=== PATIENT | male | born 1945 | race Caucasian/White ===

== ENCOUNTER 2016-03-17 10:53 | Inpatient (IN) | payer MEDICARE ==
[2016-03-17] MEDS ORDERED: NS 0.9% 1000 ML* 1,000 ML IV SCH (11:15)
--- NOTE | 2016-03-17 11:50 | RAD ---
INDICATION: Ventricular tachycardia episode. COMPARISON: Comparison is made with a prior chest x-ray study from March 14, 2016. TECHNIQUE: A portable view of the chest was obtained. FINDINGS: Cardiac and mediastinal contours appear to be within normal limits. The lungs are clear. No pleural effusion is seen. IMPRESSION: NO EVIDENCE FOR ACUTE DISEASE.
[2016-03-17 11:53] LABS: Hematocrit 44 % (42-52); Hemoglobin 14.6 g/dl (14.0-18.0); Mean Corpuscular HGB Conc 34 g/dl (31-36); Mean Corpuscular Hemoglobin 31 pg (27-31); Mean Corpuscular Volume 91 fL (80-94); Mean Platelet Volume 8 um3 (7.4-10.4); Red Blood Count 4.76 10^6/ul (4.0-5.4); Red Cell Distribution Width 13 % (10.5-15); White Blood Count 4.2 10^3/ul (3.5-10.8)
[2016-03-17] MEDS ORDERED: Acetaminophen TAB* 325 MG PO PRN (12:06)
[2016-03-17] MEDS ORDERED: Ondansetron INJ* 2 MG/ML VIAL IV PRN ×2 (12:06→17:43)
[2016-03-17] MEDS ORDERED: Atorvastatin* 80 MG TAB PO ONE (12:07)
[2016-03-17] MEDS ORDERED: Metoprolol Tartrate TAB* 25 MG PO SCH (12:07)
[2016-03-17 12:13] LABS: Albumin 3.7 g/dL (3.2-5.2); BUN/Creatinine Ratio 11.8 (8-20); C Reactive Protein 5.62 mg/L (< 5.00); EGFR African American 113.6 (>60); EGFR Non-African American 88.4 (>60); Globulin 2.8 g/dL (2-4); Magnesium 2.2 mg/dL (1.9-2.7); Potassium 3.5 mmol/L (3.5-5.0); Total Bilirubin 0.9 mg/dL (0.2-1.0); Total Protein 6.5 g/dL (6.4-8.9)
--- NOTE | 2016-03-17 12:13 | ED ---
Steven Porras Matthew, scribed for Cameron Mae MD on 03/17/16 at 1120 . Palpitations / Dysrhythmia - HPI Summary HPI Summary: A 71 y/o male presents to the ED from Dr. Metz office for ventricular tachycardia since hours ago. The patient has approximately 20 beats of V Tachy and was asymptomatic. He was having a stress test, because of chest pressure he had 4 days ago. He currently denies any pain. He works out regularly (3-4x per week) at [employer], which includes [employer] and yoga. He states that the polictial situation has been an additional stress in his life. In 1998, the patient has three stents placed after competing a stress test. Since then he has been very active and has not had additional medical problems. - History of Current Complaint Chief Complaint: EDDysrhythmPalp Time Seen by Provider: 03/17/16 11:02 Hx Obtained From: Patient Onset/Duration: Sudden Onset, Lasting Minutes, Resolved Timing: Intermittent Episodes Lasting: - ~20 beats of V Tach Severity Initially: Mild Severity Currently: Mild Character: Irregular Aggravating: Exertion - Stress Test Alleviating: Rest Associated Signs & Symptoms: Negative - Allergy/Home Medications Allergies/Adverse Reactions: Allergies Allergy/AdvReac Type Severity Reaction Status Date / Time Reproterol Allergy Unknown Unknown Verified 03/17/16 11:03 Reaction Details Morphine Allergy Tachycardia Verified 03/17/16 11:03 Home Medications: Home Medications Atorvastatin* [Lipitor*] 40 mg PO DAILY 03/17/16 [History Confirmed 03/17/16] Diltiazem HCl Coated Beads [Cartia Xt] 240 mg PO DAILY 03/17/16 [History Confirmed 03/17/16] Irbesartan (NF) [Avapro (NF)] 150 mg PO BID 03/17/16 [History Confirmed 03/17/16 ] PMH/Surg Hx/FS Hx/Imm Hx Endocrine/Hematology History: Denies: Hx Diabetes, Hx Thyroid Disease Cardiovascular History: Reports: Hx Hypercholesterolemia, Hx Hypertension - on meds Denies: Hx Peripheral Vascular Disease Musculoskeletal History: Denies: Hx Arthritis, Hx Rheumatoid Arthritis, Hx Osteoporosis Sensory History: Denies: Hx Cataracts, Hx Contacts or Glasses, Hx Glaucoma Opthamlomology History: Denies: Hx Cataracts, Hx Contacts or Glasses, Hx Glaucoma Neurological History: Denies: Hx Headaches, Hx Seizures, Hx Transient Ischemic Attacks (TIA) Psychiatric History: Denies: Hx Anxiety, Hx Depression - Surgical History Surgery Procedure, Year, and Place: 1998 Infectious Disease History: No Infectious Disease History: Denies: Traveled Outside the [place] in Last 30 Days - Family History Known Family History: Negative: Cardiac Disease, Hypertension, Diabetes Family History: No FHx of HLD, arhtritist, RA, Osteoporosis; FHx of CA - Social History Lives: With Family Hx Substance Use: No Substance Use Type: Reports: None Hx Tobacco Use: No Smoking Status (MU): Never Smoked Tobacco Review of Systems Constitutional: Negative Eyes: Negative ENT: Negative Cardiovascular: Negative Respiratory: Negative Gastrointestinal: Negative Genitourinary: Negative Musculoskeletal: Negative Skin: Negative Neurological: Negative Psychological: Normal All Other Systems Reviewed And Are Negative: Yes Physical Exam Triage Information Reviewed: Yes Vital Signs On Initial Exam: Initial Vitals Temp Pulse Resp BP Pulse Ox 99.4 F 88 16 146/99 98 03/17/16 10:56 03/17/16 10:56 03/17/16 10:56 03/17/16 10:56 03/17/16 10:56 Vital Signs Reviewed: Yes Appearance: Positive: Well-Appearing, No Pain Distress Skin: Positive: Warm, Skin Color Reflects Adequate Perfusion, Dry Head/Face: Positive: Normal Head/Face Inspection ENT: Positive: Normal ENT inspection Neck: Positive: Supple, Nontender Respiratory/Lung Sounds: Positive: Clear to Auscultation, Breath Sounds Present Cardiovascular: Positive: RRR Abdomen Description: Positive: Nontender, Soft Musculoskeletal: Positive: Normal, Strength/ROM Intact Neurological: Positive: Normal, Sensory/Motor Intact, Alert, Oriented to Person Place, Time Psychiatric: Positive: Normal, Affect/Mood Appropriate Diagnostics - Vital Signs Vital Signs Temp Pulse Resp BP Pulse Ox 03/17/16 10:56 99.4 F 88 16 146/99 98 - Laboratory Lab Results: Lab Results 03/17/16 03/17/16 Range/Units 11:35 11:35 WBC 4.2 (3.5-10.8) 10^3/ul RBC 4.76 (4.0-5.4) 10^6/ul Hgb 14.6 (14.0-18.0) g/dl Hct 44 (42-52) % MCV 91 (80-94) fL MCH 31 (27-31) pg MCHC 34 (31-36) g/dl RDW 13 (10.5-15) % Plt Count 216 (150-450) 10^3/ul MPV 8 (7.4-10.4) um3 Neut % (Auto) 62.9 (38-83) % Lymph % (Auto) 16.7 L (25-47) % [place] % (Auto) 17.1 H (1-9) % Eos % (Auto) 2.7 (0-6) % Baso % (Auto) 0.6 (0-2) % Absolute Neuts (auto) 2.6 (1.5-7.7) 10^3/ul Absolute Lymphs (auto) 0.7 L (1.0-4.8) 10^3/ul Absolute Monos (auto) 0.7 (0-0.8) 10^3/ul Absolute Eos (auto) 0.1 (0-0.6) 10^3/ul Absolute Basos (auto) 0 (0-0.2) 10^3/ul Absolute Nucleated RBC 0.01 10^3/ul Nucleated RBC % 0.3 INR (Anticoag Therapy) 1.02 (0.89-1.11) APTT 31.9 (26.0-36.3) seconds Result Diagrams: 03/17/16 11:35 Lab Statement: Any lab studies that have been ordered have been reviewed, and results considered in the medical decision making process. - Radiology CXR Xray Interpretation: No Acute Changes - The lungs are clear. No pleural effusion is seen. IMPRESSION: NO EVIDENCE FOR ACUTE DISEASE. Radiology Interpretation Completed By: Radiologist - EKG 10:51 Cardiac Rate: NL - 89 bpm EKG Rhythm: Sinus Rhythm ST Segment: Normal Ectopy: None Course/Dx - Course Assessment/Plan: DISCUSSED WITH DR SOUZA. ADMIT HOSPITALIST STABLE. - Diagnoses Provider Diagnoses: Ventricular tachycardia - Physician Notifications Discussed Care Of Patient With: Dr. Law (Hospitalist) at 11:15 -- Notified of patient's history and will admit the patient. Discharge - Discharge Plan Condition: Stable Disposition: ADMITTED TO [facility] Referrals: Robbin Ervin MD [Primary Care Provider] - The documentation as recorded by the Steven keane Matthew accurately reflects the service I personally performed and the decisions made by me, Cameron Mae MD.
[2016-03-17 12:22] LABS: TSH (Thyroid Stimulating Horm) 1.85 mcIU/mL (0.34-5.60)
[2016-03-17] MEDS ORDERED: Potassium Chlor TAB* 20 MEQ TAB.ER PO ONE (12:25)
[2016-03-17] MEDS ORDERED: Ticagrelor* 90 MG TAB PO ONE ×2 (12:30→12:32)
[2016-03-17 12:31] LABS: Urine Bilirubin Negative (Negative); Urine Glucose Negative (Negative); Urine Nitrite Negative (Negative)
[2016-03-17] MEDS ORDERED: Diazepam TAB(*) 5 MG PO ONE (12:57)
[2016-03-17] MEDS ORDERED: diPHENhydraMINE PO* 25 MG PO ONE (12:57)
--- NOTE | 2016-03-17 13:00 | CONSULT ---
Subjective Date of Service: 03/17/16 Interval History: Date of admission and consult 03/17/2016 Owner/Photographer: Dr. Woods Service: Hospitalist CC: Chest discomfort Reason for consult: Abnormal stress test/WCT HPI: Mr. Monzon is a 71 year old man with intermittent chest heaviness at rest last 2 weeks that resolves with exercise. Fleeting seconds of neck discomfort. Mild cough and chest feels congestion. No palpitations or syncope. Did AM treadmill study without usual cardizem and had WCT consider VT post-exercise without symptoms. He is asymptomatic at this time and denies any chest pain, jaw pain or chest congestion. The first troponin is undetectable and 12 lead EKG is normal. Allergies: Omnipaque 06/25/05 Altace 01/06/06 - cough Morphine 04/04/09 - hypotension and bradycardia allergy list reviewed on 03/14/2016 FH: Breast Cancer - mother Prostate Cancer - father. 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. present at bedside Personal Habits: Smoking: Patient has never smoked.. Alcohol: Rarely consumes alcohol. Exercises regularly - 4-5 days/week - aerobic, ligting weight, stretchings. Medications Active Medications: Acetaminophen (Tylenol Tab*) 650 mg PO Q4H PRN PRN Reason: FEVER/PAIN Aspirin (Aspirin Low Dose Tab*) 81 mg PO DAILY [facility] Atorvastatin Calcium (Lipitor*) 80 mg PO 1700 [facility] Heparin Sodium (Porcine) (Heparin Vial(*)) 5,000 units SUBCUT Q8HR [facility] Sodium Chloride (Ns 0.9% 1000 Ml*) 1,000 mls @ 150 mls/hr IV PER RATE [facility] Losartan Potassium (Cozaar Tab*) 50 mg PO BID [facility] Metoprolol Tartrate (Lopressor Tab*) 25 mg PO Q12HR [facility] Ondansetron HCl (Zofran Inj*) 4 mg IV Q6H PRN PRN Reason: NAUSEA Ticagrelor (Brilinta*) 90 mg PO BID [facility] Home Medications: aspirin Atorvastatin* [Lipitor*] 40 mg PO DAILY 03/17/16 [History Confirmed 03/17/16] Diltiazem HCl Coated Beads [Cartia Xt] 240 mg PO DAILY 03/17/16 [History Confirmed 03/17/16] Irbesartan (NF) [Avapro (NF)] 150 mg PO BID 03/17/16 [History Confirmed 03/17/16 ] Review of Systems - Measurements Intake and Output: Intake and Output Last 24 Hours 03/15/16 03/16/16 03/17/16 03/18/16 06:59 06:59 06:59 06:59 Weight 168 lb - Review of Systems Constitutional Symptoms: Negative: Weight Gain, Weight Loss, Weakness, Fatigue, Fever, Night Sweats, Unexplained Falls Dermatology: Negative: Rash, Skin Lesions, Cancer, Skin Lumps HEENT: Negative: Change in Hearing, Vertigo, Tinnitus, Sinus Problem Eyes: Negative: Change in Vision, Double Vision, Eye Pain Thyroid: Negative: Goiter, Thyroid Nodule, Cold Intolerance, Heat Intolerance, Sweatiness, Tremor, Frequent Defecation, Constipation, Palpitations, Primary Hypothyroidism, Primary Hyperthyroidism, Weight Loss, Weight Gain Pulmonary: Positive: Cough Negative: Sputum, Hemoptysis, Wheezing, Respiratory Distress, Shortness of Breath, COPD, Exercise Intolerance Cardiology: Positive: Chest Pain Negative: Palpitations, Swelling of Ankles, Peripheral Vascular Dis, Edema, Faintness, Syncope, Claudication, Paroxysmal Nocturnal Dyspnea, Orthopnea Gastroenterology: Negative: Abdominal Pain, Nausea, Vomiting, Anorexia, Indigestion, Difficulty Swallowing, Heartburn, Constipation, Diarrhea, Blood in Stools, Change in Bowel Habits, Haematemesis, Melena Genital - Urinary: Negative: Dysuria, Polyuria, Nocturia Musculoskeletal: Negative: Joint Stiffness, Arthritis, Osteoporosis, Low Back Pain, Sciatica Endocrinology: Negative: Adrenal Problems, Family Hx Endocrine Disorders, Obesity, Diabetes , Hyperglycemia, Hypoglycemia, Calluses, Polydipsia, Polyuria Hematologic/Lymphatic: Positive: Use of Antiplatelet Drugs Negative: Anemia, Easy Brusing, Hx Leukemia, Hx Lymphoma, Use of Anticoagulant Neurology: Negative: Headaches, Migraines, Change in Vision, Diplopia, Dizziness, Change in Balancing, Change in Coordination, Change in Memory, Change in Speech , Change in Sphincter Function, Change in Walking, Numbness\Paresthesiae, Unexplained Weakness Psychiatry: Negative: Depression, Anxiety, Sexual Dysfunction, Weight Change, Guilt Feelings Allergic/Immunologic: Negative: Hx HIV, Immunocompromise Review of Systems Statement: All other review of systems negative, unless stated above. Objective Vital Signs: Temp Pulse Resp BP Pulse Ox 99.4 F 86 19 156/101 97 03/17/16 10:56 03/17/16 11:04 03/17/16 11:04 03/17/16 11:03 03/17/16 11:04 Appearance: nad, pleasant Ears/Nose/Mouth/Throat: Clear Oropharnyx, Mucous Membranes Moist Neck: NL Appearance and Movements; NL JVP, Trachea Midline Respiratory: Symmetrical Chest Expansion and Respiratory Effort, Clear to Auscultation Cardiovascular: NL Sounds; No Murmurs; No JVD, RRR, No Edema Abdominal: NL Sounds; No Tenderness; No Distention Lymphatic: No Cervical Adenopathy Extremities: No Edema Skin: No Rash or Ulcers Neurological: Alert and Oriented x 3, NL Muscle Strength and Tone Laboratory Results: 03/17/16 11:35 03/17/16 11:35 INR (Anticoag Therapy) 1.02 (0.89-1.11) 03/17/16 11:35 APTT 31.9 seconds (26.0-36.3) 03/17/16 11:35 Total Bilirubin 0.90 mg/dL (0.2-1.0) 03/17/16 11:35 AST 17 U/L (13-39) 03/17/16 11:35 ALT 18 U/L (7-52) 03/17/16 11:35 Alkaline Phosphatase 80 U/L (34-104) 03/17/16 11:35 CK-MB (CK-2) 3.0 ng/mL (0.6-6.3) 03/17/16 11:35 B-Natriuretic Peptide 39 pg/mL (-100) 03/17/16 11:35 Total Protein 6.5 g/dL (6.4-8.9) 03/17/16 11:35 Albumin 3.7 g/dL (3.2-5.2) 03/17/16 11:35 Globulin 2.8 g/dL (2-4) 03/17/16 11:35 Albumin/Globulin Ratio 1.3 (1-3) 03/17/16 11:35 TSH 1.85 mcIU/mL (0.34-5.60) 03/17/16 11:35 03/17/16 11:35 Troponin I 0.00 Diagnostic Imagin04/17/1998: (stress test inferior and lateral ischemia). 90% OM1 with occluded Lcx that is collateralized, 95% RPDA lesions s/p PCI to Lcx and RPDA TTE 11/2013 LVEF 60-65% Assessment/Plan Mr. Franklin is a 71 year old man with a history of HTN, dyslipidemia, CAD s/p PCI admitted with atypical chest pain and abnormal stress test with post-exercise WCT likely VT. Asymptomatic at this time without any evidence of ongoing myocardial ischemia. - Cardiac catheterization with intent for revascularization recommended. Risks , benefits and alternatives discussed and patient wishes to proceed. - Continue aspirin at 81 mg PO daily - Given brillinta 180 mg PO x 1 now then 90 mg PO BID - Intensive dose statin - d/c cardizem, start metoprolol Thank you for allowing me to participate in the cardiovascular care of this patient. Please do not hesitate to contact me with questions or concerns.
[2016-03-17] MEDS ORDERED: Midazolam* 1 MG/ML 5 ML VIAL (5 MG) ONE (13:43)
[2016-03-17] MEDS ORDERED: VERAPAMIL 2.5 MG/ML 4 ML VIAL ONE (13:43)
[2016-03-17] MEDS ORDERED: fentaNYL* 50 MCG/ML 2 ML VIAL (100 MCG VIAL) ONE (13:43)
[2016-03-17] MEDS ORDERED: Iohexol 350 (CONTRAST) 200 ML MDV IV ONE (13:44)
[2016-03-17] MEDS ORDERED: nitroGLYCERIN DRIP* 250 ML ONE (13:44)
[2016-03-17] MEDS ORDERED: Heparin 2 UNITS/ML IVPREMIX* 3,000 ML IV ONE (13:44)
[2016-03-17] MEDS ORDERED: Lidocaine 1% INJ* 10 MG/ML 30 ML SDV ONE (13:44)
[2016-03-17] MEDS ORDERED: Heparin(*) 1000 UNIT/ML 10 ML VIAL CATH LAB IV ONE (13:46)
[2016-03-17] MEDS ORDERED: Iodixanol* (CONTRAST) 320 MG/ML 100 ML SDV ONE ×2 (13:46→15:02)
[2016-03-17] MEDS ORDERED: diPHENhydraMINE IV* 50 MG/ML 1 ml VIAL (BENADRYL) ONE (13:48)
[2016-03-17] MEDS ORDERED: methylPREDNISolone 125 MG* 2 ML VIAL ONE (13:48)
[2016-03-17] MEDS ORDERED: Bivalirudin(*) 250 MG VIAL ONE (14:30)
[2016-03-17] MEDS ORDERED: Adenosine* 3 MG/ML VIAL ONE (14:40)
[2016-03-17] MEDS: NS 0.9% 1000 ML* 1,000 ML IV SCH (17:41)
[2016-03-17] MEDS ORDERED: Docusate CAP* 100 MG PO PRN (17:43)
[2016-03-17] MEDS ORDERED: Nitroglycerin TAB 0.4 MG* 0.4 MG TAB SL PRN (17:43)
[2016-03-17] MEDS ORDERED: Zolpidem TAB* 5 MG PO PRN (17:43)
[2016-03-17] MEDS: Heparin VIAL(*) 5000 UNITS/ML VIAL (FIVE THOUSAND) SUBCUT SCH ×2 (18:33→21:13)
--- NOTE | 2016-03-17 19:46 | HP ---
HISTORY AND PHYSICAL: DATE OF ADMISSION: 03/17/16 ATTENDING PHYSICIAN: Dr. Serg Law* (report dictated by Dave Martinez NP) . CHIEF COMPLAINT: Abnormal stress test. HISTORY OF PRESENT ILLNESS: Mr. Franklin is a 71-year-old male patient with a history of coronary artery disease, hypertension, hyperlipidemia and a history of melanoma. In addition to this, there is a questionable history of obstructive sleep apnea, although he does not wear a mask. He presents today stating that last week he was having some chest discomfort at rest just sitting and with non-exertionally. He states he has been working out, doing his elliptical at [facility]. He has no symptoms whatsoever when he does this with the exception he did have one episode where he had some discomfort going up into his jaw and into his neck area. He states last week he also felt off. He states he just felt different, felt weak, felt like he did not have enough oxygen after exercising 1 day. He also had some chest congestion. 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 Woods, who saw him last week and set the patient up for a stress test today. He denies having any episodes of syncope. Denies having any episodes of feeling lightheaded or dizziness. He states he has not had any fever. Denied having any sore throat or cough. Denied having any leg slowing or erythema or leg calf tenderness. He saw Dr. Woods. She felt that it will be appropriate to do a nuclear stress test and underwent the stress today and during the stress test, he had a 20-beat episode of ventricular tachycardia, which was asymptomatic. The only thing he felt was short of breath but he had just been exercising on the treadmill and had his heart rate up to 150. He denied having any episodes of feeling lightheaded, feeling dizziness, feeling like he was going to faint. Denied any having any chest discomfort, arm pain or any discomfort in the neck like he had previously but because of the 20-beat V-tach run, he was sent to the emergency department for further evaluation and most likely cardiac catheterization. PAST MEDICAL HISTORY: Significant for: 1. Coronary artery disease. 2. Hyperlipidemia. 3. Hypertension. 4. Question of KOBY. 5. Melanoma. PAST SURGICAL HISTORY: He has had a cardiac catheterization with stenting to the RCA and to the circumflex done in 1998. Refer to the report for details. HOME MEDICATIONS: According to the list that was provided and according to Cardiology notes include: 1. Avapro 150 mg p.o. b.i.d. 2. Cartia 240 mg p.o. daily. 3. Lipitor 40 mg daily. ALLERGIES: Include OMNIPAQUE and a history of MORPHINE allergy as well. FAMILY HISTORY: Mother had breast cancer, father had prostate cancer. SOCIAL HISTORY: He does not smoke. He rarely drinks alcohol. He exercises 4 to 5 times a week. Surrogate decision maker is his . He has 1 child. 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 REVIEW OF SYSTEMS: There is no documented fever. No significant weight change. No double vision. No ear discharge. No rhinorrhea. No sore throat. No thyroid enlargement. There was chest heaviness from HPI. No dyspnea on exertion. No orthopnea. No exertional dyspnea. There is no abdominal pain. No nausea, no vomiting no dysuria, no frequency, no loss of consciousness. No pruritus. No skin ulceration. Review of 14 systems completed, all others negative. PHYSICAL EXAMINATION GENERAL: Mr. Franklin is a 71-year-old male patient who does not appear to be in any acute distress. He is sitting in the ER stretcher. Appears well nourished and well developed. VITAL SIGNS: Blood pressure 146/99, pulse 88, respirations 16, O2 sat 98%, temperature 99.4. HEENT: Head is atraumatic, normocephalic. Eyes: EOMs intact. Sclerae anicteric, not pale. NECK: Supple. Throat: Oral mucosa appears to be moist. No oropharyngeal erythema. HEART: Sounds S1, S2. Regular rate and rhythm. No murmurs, rubs, or gallops. LUNGS: Clear to auscultation bilaterally. No wheezes, rales or rhonchi. ABDOMEN: Soft, flat, and nontender. Bowel sounds are present. EXTREMITIES: Pulses 2+ throughout. He is able to move all 4 extremities with 5 /5 strength. NEUROLOGIC: He is awake and alert and oriented x3. No gross focal deficits. SKIN: Grossly intact. LABORATORY DATA: Revealed a WBC of 4.2, RBC of 4.76, hemoglobin 14.6, hematocrit of 44, platelet count 216. INR 1.02, PTT 31.9. Sodium was 138, potassium was 3.5, chloride of 105, bicarb 28, BUN 10, creatinine 0.85, glucose 104, calcium 9.0, mag 2.2. His total bili 0.9, AST 17, ALT 18, alk phos 80, CK 72, CK-MB 3.0, troponin 0, CRP of 5.6, BNP of 39, TSH 1.85, lipase 58. He did have an EKG obtained today, which showed normal sinus rhythm at a rate of [address] elevation or T-wave inversions. It was reviewed to the previous EKG, appears to be similar. He had a chest x-ray obtained today and on my review I did not appreciate any acute infiltrates or pulmonary effusions. He had no cardiomegaly. Appeared to be a benign film. Radiology read it as no evidence of acute disease. He did have an old cath report, which did show 2-vessel disease. Refer to the chart for details. Old medical records were reviewed. ASSESSMENT AND PLAN: Mr. Franklin is a 71-year-old male patient coming into ER today with complaint of an abnormal stress test and on evaluation found to have 20-beat run of ventricular tachycardia and he will be admitted under inpatient status for: 1. Chest discomfort. Concern for acute coronary syndrome with episode of ventricular tachycardia. At this point, I do note his potassium is 3.5. I am going to give him 40 mEq of potassium to try to him get close to 4. His magnesium is stable. Obviously, I think the next step for this patient because he was having some discomfort, is to go ahead and do a heart catheterization. Dr. Camara has been consulted. He is in touch with Dr. Benavides to see if they can do a heart catheterization today. I did ask specifically if we should put the patient on Lovenox or heparin, but he is asymptomatic. His troponin is 0. At this point, we will discontinue the beta, aspirin, statin therapy and we also started him on Brilinta. He was loaded today. If his troponins elevate or he starts becoming symptomatic, then obviously we would add on nitrates and heparin or Lovenox. For the time being though, he is n.p.o. for possible cath today or tomorrow and we will place him on telemetry and follow. 2 . Coronary artery disease. Again, he is already maximized on aspirin, Lipitor, beta- mendez and Brilinta. We may consider nitrates and Lovenox depending on clinical course. 3. Hyperlipidemia. We will check a lipid panel in the morning. He will continue statin. 4. Question of obstructive sleep apnea. He can follow up with his primary and this can be reevaluated. 5. Hypertension. We will go ahead and continue meds as prescribed with the exception I am holding his Cartia and I am starting him on a beta-mendez for now and I will continue to follow. 6. Melanoma. Follow with his primary. 7. DVT prophylaxis. I will go ahead and place him on heparin subcu as he is moderate risk. 8. Code status. He is a full code. 9. Fluid, electrolytes and nutrition. He is n.p.o. Should he be allowed to eat today if we are not going to do a stress test, I will put him on a heart healthy diet. TIME SPENT: Time spent on the admission was approximately 60 minutes, greater than half the time was spent [id number] with the patient obtaining my history and physical; the other half time was spent going over the plan of care with the patient and implementing plan of care. I did discuss the plan of care with my attending, Dr. Law, who is in agreement. DAVE MARTINEZ NP CC: Dr. Woods, Dr. Ervin, Dr. Camara* [id number]/[facility] #: [id number] [facility]
[2016-03-17] MEDS: Losartan TAB* 25 MG PO SCH (21:12)
[2016-03-17] MEDS: Metoprolol Tartrate TAB* 25 MG PO SCH (21:13)
[2016-03-17] MEDS: Ticagrelor* 90 MG TAB PO SCH (21:14)
[2016-03-18 05:35] LABS: Hematocrit 41 % (42-52); Hemoglobin 13.8 g/dl (14.0-18.0); Mean Corpuscular HGB Conc 34 g/dl (31-36); Mean Corpuscular Hemoglobin 31 pg (27-31); Mean Corpuscular Volume 91 fL (80-94); Mean Platelet Volume 8 um3 (7.4-10.4); Red Blood Count 4.49 10^6/ul (4.0-5.4); Red Cell Distribution Width 14 % (10.5-15); White Blood Count 5.8 10^3/ul (3.5-10.8)
[2016-03-18 05:51] LABS: Albumin 3.3 g/dL (3.2-5.2); BUN/Creatinine Ratio 18.3 (8-20); Calcium 8.5 mg/dL (8.6-10.3); EGFR African American 118.4 (>60); EGFR Non-African American 92.1 (>60); Globulin 2.5 g/dL (2-4); HDL Cholesterol 40.6 mg/dL; Potassium 3.2 mmol/L (3.5-5.0); Total Bilirubin 0.9 mg/dL (0.2-1.0); Total Protein 5.8 g/dL (6.4-8.9)
[2016-03-18] MEDS: Heparin VIAL(*) 5000 UNITS/ML VIAL (FIVE THOUSAND) SUBCUT SCH ×3 (07:18→20:56)
[2016-03-18] MEDS: NS 0.9% 1000 ML* 1,000 ML IV SCH (07:39)
[2016-03-18] MEDS: Losartan TAB* 25 MG PO SCH ×2 (09:17→20:55)
[2016-03-18] MEDS: Aspirin Low Dose CHEW TAB* 81 MG PO SCH (09:17)
[2016-03-18] MEDS: Metoprolol Tartrate TAB* 25 MG PO SCH ×4 (09:17→23:51)
[2016-03-18] MEDS: Ticagrelor* 90 MG TAB PO SCH ×2 (09:17→20:56)
[2016-03-18] MEDS ORDERED: Potassium Chlor TAB* 20 MEQ TAB.ER PO ONE (10:02)
--- NOTE | 2016-03-18 10:21 | PN ---
Subjective Date of Service: 03/18/16 Interval History: pt feels well, no c/o CP/SOB Objective Active Medications: Acetaminophen (Tylenol Tab*) 650 mg PO Q4H PRN PRN Reason: FEVER/PAIN Aspirin (Aspirin Low Dose Tab*) 81 mg PO DAILY [facility] Last Admin: 03/18/16 09:17 Dose: 81 mg Atorvastatin Calcium (Lipitor*) 80 mg PO 1700 [facility] Docusate Sodium (Colace Cap*) 100 mg PO DAILY PRN PRN Reason: CONSTIPATION Heparin Sodium (Porcine) (Heparin Vial(*)) 5,000 units SUBCUT Q8HR [facility] Last Admin: 03/18/16 07:18 Dose: 5,000 units Losartan Potassium (Cozaar Tab*) 50 mg PO BID [facility] Last Admin: 03/18/16 09:17 Dose: 50 mg Metoprolol Tartrate (Lopressor Tab*) 25 mg PO Q12HR [facility] Last Admin: 03/18/16 09:17 Dose: 25 mg Nitroglycerin (Nitroglycerin Tab 0.4 Mg*) 0.4 mg SL Q5M PRN PRN Reason: ANGINA Ondansetron HCl (Zofran Inj*) 4 mg IV Q6H PRN PRN Reason: NAUSEA Ondansetron HCl (Zofran Inj*) 4 mg IV Q4H PRN PRN Reason: NAUSEA Ticagrelor (Brilinta*) 90 mg PO BID [facility] Last Admin: 03/18/16 09:17 Dose: 90 mg Zolpidem Tartrate (Ambien Tab*) 5 mg PO BEDTIME PRN PRN Reason: INSOMNIA Last Admin: 03/17/16 21:12 Dose: 5 mg Vital Signs 03/17/16 03/17/16 03/17/16 12:30 13:00 14:13 Temperature Pulse Rate 86 83 60 Respiratory 17 12 Rate Blood Pressure 132/85 128/81 (mmHg) O2 Sat by Pulse 96 95 97 Oximetry 03/17/16 03/17/16 03/17/16 15:25 15:31 16:00 Temperature 90 F Pulse Rate 29 84 84 Respiratory 15 18 16 Rate Blood Pressure 131/65 139/93 (mmHg) O2 Sat by Pulse 85 96 95 Oximetry 03/17/16 03/17/16 03/17/16 16:15 16:30 16:45 Temperature Pulse Rate 80 92 90 Respiratory 20 22 19 Rate Blood Pressure 138/86 121/59 134/90 (mmHg) O2 Sat by Pulse 96 93 94 Oximetry 03/17/16 03/17/16 03/17/16 17:00 17:15 17:30 Temperature Pulse Rate 88 89 95 Respiratory 15 18 22 Rate Blood Pressure 129/87 140/84 147/90 (mmHg) O2 Sat by Pulse 93 94 93 Oximetry 03/17/16 03/17/16 03/17/16 18:00 18:44 19:00 Temperature 96.8 F Pulse Rate 94 83 Respiratory 19 12 Rate Blood Pressure 127/80 142/79 (mmHg) O2 Sat by Pulse 93 93 Oximetry 03/17/16 03/17/16 03/17/16 19:32 20:00 20:08 Temperature Pulse Rate 85 Respiratory 8 17 18 Rate Blood Pressure 126/79 (mmHg) O2 Sat by Pulse 92 Oximetry 03/17/16 03/17/16 03/17/16 21:00 22:00 23:00 Temperature Pulse Rate 84 79 96 Respiratory 31 17 22 Rate Blood Pressure 129/87 121/85 (mmHg) O2 Sat by Pulse 94 93 94 Oximetry 03/17/16 03/17/16 03/17/16 23:01 23:43 23:51 Temperature 97.8 F Pulse Rate 96 Respiratory 18 16 Rate Blood Pressure 134/98 (mmHg) O2 Sat by Pulse 94 Oximetry 03/18/16 03/18/16 03/18/16 00:00 00:01 00:15 Temperature Pulse Rate 78 78 77 Respiratory 15 15 15 Rate Blood Pressure 119/74 (mmHg) O2 Sat by Pulse 95 94 94 Oximetry 03/18/16 03/18/16 03/18/16 00:19 01:00 01:01 Temperature Pulse Rate 78 75 Respiratory 16 15 12 Rate Blood Pressure 138/118 (mmHg) O2 Sat by Pulse 97 95 Oximetry 03/18/16 03/18/16 03/18/16 02:00 03:00 03:59 Temperature 97.8 F Pulse Rate 78 80 Respiratory 15 14 Rate Blood Pressure 118/81 134/86 (mmHg) O2 Sat by Pulse 94 94 Oximetry 03/18/16 03/18/16 03/18/16 04:00 04:40 05:00 Temperature Pulse Rate 83 87 Respiratory 11 14 17 Rate Blood Pressure 126/91 145/92 (mmHg) O2 Sat by Pulse 95 96 Oximetry 03/18/16 03/18/16 03/18/16 06:00 07:00 07:40 Temperature Pulse Rate 84 92 Respiratory 9 14 16 Rate Blood Pressure 136/87 132/83 (mmHg) O2 Sat by Pulse 97 94 Oximetry 03/18/16 03/18/16 03/18/16 08:00 08:40 09:00 Temperature Pulse Rate 98 93 Respiratory 15 18 15 Rate Blood Pressure 138/94 153/96 (mmHg) O2 Sat by Pulse 98 96 Oximetry 03/18/16 03/18/16 09:14 10:00 Temperature 98 F Pulse Rate 96 Respiratory 18 Rate Blood Pressure (mmHg) O2 Sat by Pulse 96 Oximetry Oxygen Devices in Use Now: None Appearance: 71 yo M in nAD, aAOx3 Eyes: No Scleral Icterus, PERRLA Ears/Nose/Mouth/Throat: NL Teeth, Lips, Gums, Mucous Membranes Moist Neck: NL Appearance and Movements; NL JVP, Trachea Midline Respiratory: Symmetrical Chest Expansion and Respiratory Effort, Clear to Auscultation Cardiovascular: NL Sounds; No Murmurs; No JVD, RRR Abdominal: NL Sounds; No Tenderness; No Distention Lymphatic: No Cervical Adenopathy Extremities: No Edema, No Clubbing, Cyanosis Skin: No Rash or Ulcers, No Nodules or Sclerosis, - - R radial access with puncture site, no hematoma, pulses +2 B/L Neurological: Alert and Oriented x 3 Result Diagrams: 03/18/16 05:10 03/18/16 05:10 Additional Lab and Data: Lab Results 03/17/16 03/17/16 Range/Units 11:35 11:35 WBC 4.2 (3.5-10.8) 10^3/ul RBC 4.76 (4.0-5.4) 10^6/ul Hgb 14.6 (14.0-18.0) g/dl Hct 44 (42-52) % MCV 91 (80-94) fL MCH 31 (27-31) pg MCHC 34 (31-36) g/dl RDW 13 (10.5-15) % Plt Count 216 (150-450) 10^3/ul MPV 8 (7.4-10.4) um3 Neut % (Auto) 62.9 (38-83) % Lymph % (Auto) 16.7 L (25-47) % Parke % (Auto) 17.1 H (1-9) % Eos % (Auto) 2.7 (0-6) % Baso % (Auto) 0.6 (0-2) % Absolute Neuts (auto) 2.6 (1.5-7.7) 10^3/ul Absolute Lymphs (auto) 0.7 L (1.0-4.8) 10^3/ul Absolute Monos (auto) 0.7 (0-0.8) 10^3/ul Absolute Eos (auto) 0.1 (0-0.6) 10^3/ul Absolute Basos (auto) 0 (0-0.2) 10^3/ul Absolute Nucleated RBC 0.01 10^3/ul Nucleated RBC % 0.3 INR (Anticoag Therapy) 1.02 (0.89-1.11) APTT 31.9 (26.0-36.3) seconds Microbiology and Other Data: Microbiology 03/17/16 15:45 Nasal Screen MRSA (PCR)([facility]) - Final Nasal Mrsa Negative Assess/Plan/Problems-Billing Assessment: 71 year old man with a history of HTN, dyslipidemia, CAD s/p PCI admitted with atypical chest pain and abnormal stress test with post-exercise WCT likely VT. troponin neg and EKG at baseline. - Patient Problems (1) CAD (coronary artery disease) Comment: with symptoms of atypical CP and post stress VTach s/p cath with Dr. Benavides on 03/17/16, stent in mid circ. Official report of cath pending cont ASA/Brilinta Transfer to telem titrate BB to HR 60 (2) HTN (hypertension) Comment: uncontrolled. Cont Losartan. titrate up BB (3) Dyslipidemia Comment: LDL 82 lipitor dose increased from 40 to 80 mg (4) DVT prophylaxis Comment: heparin sc
--- NOTE | 2016-03-18 10:55 | CATH ---
CARDIAC CATHETERIZATION AND INTERVENTIONAL REPORT: DATE OF SERVICE: 03/17/2016 - inpatient room #FJP50-52. DATE OF : 41 INDICATION FOR THE PROCEDURE: The patient with ventricular tachycardia on exercise nuclear stress test with a history of stents to the posterior descending artery, the right coronary artery, and the circumflex in 1998 assessed for the presence of stenotic coronary artery disease. PROCEDURE: Coronary arteriography, left heart catheterization, left ventriculography, balloon angioplasty, and placement of a 3.0 mm x 28-mm long Synergy drug-eluting stent in the mid circumflex area. DESCRIPTION OF PROCEDURE: The patient was examined and interviewed in the holding area of the metallurgy laboratory technician, where the risks and benefits were explained. He understood them and wished to proceed. He was brought to the cardiovascular laboratory, where formal time-out was performed. In the holding, the right radial artery had been assessed for size for an approach and was found to be acceptable and as such the patient was prepped and draped in a sterile fashion and right radial artery area was anesthetized with 1% lidocaine. The right radial artery was cannulated and a 6- Kittitian Glidesheath was placed. The patient received a radial artery cocktail including 3000 units of heparin, 300 mcg of nitroglycerin, and 3 mg of verapamil intraarterial. Coronary arteriography was then performed utilizing a 5-Kittitian 4 TIG coronary catheter for the right coronary artery and a 5-Kittitian 3.5-curve FL catheter for the left coronary catheter. A 5-Kittitian PIG Performa radial was utilized for the left heart catheterization. Following this, a decision was made to intervene into the circumflex artery and as such, guiding views were obtained using a 6-Kittitian VL 3.5 curve left coronary guide catheter. An 0.014 All-Star wire was advanced on the circumflex artery and balloon angioplasty was performed utilizing a 2.75-mm x 12-mm long NC Emerge balloon followed by placement of a 3.0-mm x 28-mm long Synergy drug- eluting stent with postdeployment high pressure inflations made with a 3.0-mm x 8-mm long emerge balloon. The artery was then assessed for the results in multiple views. The decision was then made to perform fractional flow reserve analysis of the proximal right coronary; however, a STEMI alert was called, which necessitated aborting this procedure. The catheter was removed, the sheath was removed, and hemostasis was obtained with a Vasc Band. MEDICATIONS GIVEN PRIOR TO THE INTERVENTION: Included another 3000 units of heparin to achieve a therapeutic ACT for intervention. The patient has received 180 mg of Brilinta orally and already had taken aspirin therapy. The patient also received 125 mg of Solu-Medrol and 12.5 mg of IV Benadryl in addition to oral Benadryl for a reported CONTRAST allergy. RESULTS: HEMODYNAMIC DATA: LEFT HEART CATHETERIZATION: Central aortic pressure recorded at 142/88 with a mean of 114, left ventricular pressure of 144, and left ventricular end- diastolic pressure of 10-12. LEFT VENTRICULOGRAPHY: Performed in the LUNA projection revealed symmetrical contraction in the ventricle with an ejection fraction of 55%. No definitive focal wall motion abnormalities were noted. CORONARY ARTERIOGRAPHY: A. Right coronary artery - the proximal portion of the left coronary had an eccentric 70% to 75% obstruction noted. The mid portion of the right coronary artery had a mild 20% narrowing. The rest of the right coronary artery had mild -to- moderate narrowing noted in the posterior descending artery. The degree of luminal reduction noted to be approximately 30% to 35%. B. Left coronary artery: 1. Left main - there was a mild 10% to 15% distal left main lesion noted. 2. Left anterior descending artery - the proximal portion of left anterior descending artery was noted to have heavy calcification with an area of 30% to 35% narrowing noted in its proximal portion. The hzp-ui-[id number] portion of left anterior descending artery was small in caliber with a larger caliber bifurcating diagonal branch. There was no significant disease in the bifurcating diagonal branch. 3. Circumflex artery - a non-dominant vessel supplying what appeared to be one moderate-size obtuse marginal branch extending towards the apical region. There appeared to be a significant 85% to 90% lesion seen in the shallow ROSLYN caudal view. This appeared to be an area within the prior stent. The pct-ci-[id number] portion had an area that appeared to be narrow approximately 65%. INTERVENTION INTO CIRCUMFLEX ARTERY: Balloon angioplasty and placement of a 3.0-mm x 28-mm long Synergy drug- eluting stent postdilated to 3.1 to 3.2 mm with high pressure balloon inflations with reduction of 85% to 90% obstruction to 0% RIC-3 flow and no dissection seen. OVERALL ASSESSMENT: Presence of significant circumflex disease with possibly significant proximal right coronary artery disease, unfortunately the catheterization was interrupted due to a STEMI patient presenting and the need to intervene on that patient. Interestingly, in reviewing the nuclear images available from the stress test, there was no evidence of any inferior wall ischemia despite a very high heart rate with development of ventricular tachycardia. At this point in time, aggressive beta mendez therapy will be pursued and a discussion will be made how to proceed with the right coronary artery. Options include repeat focus FFR of the right coronary artery at a later setting as a staged procedure versus aggressive beta mendez management with repeat stress test on medical management. I will discuss all of these options with Dr. Woods as well. Obviously, aggressive risk factor management is paramount to his case of full progression in coronary artery disease. CC: Slime Woods MD; Robbin Ervin MD* [id number]/[facility] #: [id number] MTDD
--- NOTE | 2016-03-18 11:25 | ECHO ---
Patient: CLAUDETTE SANDY [facility] Rec#: [id number] : 1945 Date: 03/18/2016 Age: 71y Height: 167.6 cm / 66.0 in Weight: 76.2 kg / 167.9 lbs Sex: M BSA: 1.9 Room#: ICU 6 Admit Date#: 03/17/2016 Type: Inpatient Referring: Kevin Benavides MD Reading: Kevin Benavides MD Labor And Delivery Nurse: Nallely Layton RN RDCS CC: Robbin Ervin MD Transthoracic Echocardiogram Indication: CAD, S/P PCI BP: 145/92 HR: 90 Rhythm: NSR with PVCs Findings History: HTN, HLD, CAD with prior PCI, abnormal exercise stress test Technical Comments: The study quality is fair. Left Ventricle: The left ventricular chamber size is decreased. Mild concentric left ventricular hypertrophy is observed. Global left ventricular wall motion and contractility are within normal limits. There is normal left ventricular systolic function. The estimated ejection fraction is 55-60%. Visually estimated LVEF is 60%. Abnormal left ventricular diastolic filling is observed, consistent with impaired relaxation. Left Atrium: The left atrial chamber size is normal. Right Ventricle: The right ventricular cavity size is normal. The right ventricular global systolic function is normal. Right Atrium: The right atrial cavity size is normal. There is evidence of an atrial septal aneurysm. Aortic Valve: The aortic valve is trileaflet. The aortic valve leaflets are mildly thickened. There is no evidence of aortic regurgitation. There is no evidence of aortic stenosis. Mitral Valve: The mitral valve leaflets are mildly thickened. There is trace to mild mitral regurgitation. There is no evidence of mitral stenosis. Tricuspid Valve: The tricuspid valve leaflets are normal. There is trace to mild tricuspid regurgitation. No pulmonary hypertension is noted. Pulmonic Valve: The pulmonic valve appears normal. There is a trace pulmonic regurgitation. Pericardium: There is no significant pericardial effusion. A pericardial fat pad is visualized. Aorta: There is no dilatation of the ascending aorta. There is no dilatation of the aortic arch. The aortic root is normal in size. Pulmonary Artery: The main pulmonary artery is not well visualized. Venous: The venous system is not well visualized. The inferior vena cava is not visualized. Conclusions Mild concentric left ventricular hypertrophy is observed. There is normal left ventricular systolic function. Visually estimated LVEF is 60 %. Abnormal left ventricular diastolic filling is observed, consistent with impaired relaxation. There is trace to mild mitral regurgitation. There is trace to mild tricuspid regurgitation. Compared to 12/23/2013 the LV hypertrophy is noted. Measurements Name Value Normal Range RVDdMajor (2D) 3.7 cm (2.2 - 4.4) RAd ISD 4CH 4.5 cm (3.4 - 4.9) RA (A4C)W 4 cm (2.9 - 4.6) IVSd (2D) 1.1 cm (0.6 - 1) LVPWd (2D) 1 cm (0.6 - 1) LVIDd (2D) 3.1 cm (3.6 - 5.4) LVIDs (2D) 2.2 cm - LV FS (2D) 29 % (25 - 45) Aortic Annulus 1.9 cm (1.4 - 2.6) Ao root diameter (2D) 2.8 cm (2.1 - 3.5) Ascending Ao 2.9 cm (2.1 - 3.4) Aortic arch 2.3 cm (1.8 - 3.4) LAd ISD 4CH 4.9 cm (2.9 - 5.3) LA ISD 4CH W 4.2 cm (2.5 - 4.5) Name Value Normal Range LA ESV SP 4CH (A/L) 59 ml - LA ESV SP 2CH (A/L) 35 ml - LA ESV BP (A/L) 46 ml - LA ESV BP (A/L) index 25 ml/m2 - LA ESV SP 4CH (MOD) 55 ml - LA ESV SP 2CH (MOD) 33 ml - Name Value Normal Range MV E-wave Vmax 0.62 m/sec - MV deceleration time 171 msec - MV A-wave Vmax 1.2 m/sec - MV E:A ratio 0.5 ratio - LV septal e' Vmax 0.08 m/sec - LV lateral e' Vmax 0.07 m/sec - LV E:e' septal ratio 7.8 ratio - LV E:e' lateral ratio 8.9 ratio - Name Value Normal Range AV Vmax 1.2 m/sec - LVOT Vmax 0.94 m/sec - JUSTA Vmax 0.55 m/sec - Name Value Normal Range TR Vmax 2.2 m/sec - TR peak gradient 19 mmHg - RAP 8 mmHg - RVSP 27 mmHg - Name Value Normal Range PV Vmax 0.81 m/sec -
[2016-03-18] MEDS ORDERED: Atorvastatin* 80 MG TAB PO SCH (17:00)
[2016-03-19] MEDS: Metoprolol Tartrate TAB* 25 MG PO SCH (05:56)
[2016-03-19] MEDS: Heparin VIAL(*) 5000 UNITS/ML VIAL (FIVE THOUSAND) SUBCUT SCH ×2 (05:57→12:57)
[2016-03-19] MEDS: Losartan TAB* 25 MG PO SCH (08:12)
[2016-03-19] MEDS: Aspirin Low Dose CHEW TAB* 81 MG PO SCH (08:12)
[2016-03-19] MEDS: Ticagrelor* 90 MG TAB PO SCH (08:12)
[2016-03-19] MEDS ORDERED: Metoprolol Tartrate TAB* 25 MG PO ONE (09:48)
[2016-03-19 11:06] VITALS: BP 133/80
--- NOTE | 2016-03-19 11:15 | DCNOTE ---
Patient seen this morning. Feeling well. No chest pain or palpitations. Saw Dr. Benavides and Dr. Woods this morning. On exam, RRR, s1 and s2 present, no m/g/r, abd soft, NTND, BS+ D/C home with outpatient f/u with Dr. Benavides, Dr. Woods and Dr. Ervin. Discussed holding on cardiac rehab for now until residual RCA lesion is addressed.
[2016-03-19] MEDS ORDERED: Metoprolol Succinate XL TAB* 50 MG PO SCH (21:00)
--- NOTE | 2016-03-20 01:04 | DS ---
DISCHARGE SUMMARY: DATE OF ADMISSION: 03/17/16 DATE OF DISCHARGE: 03/19/16 PRIMARY CARE PHYSICIAN: Dr. Ervin. PRINCIPAL DISCHARGE DIAGNOSES: 1. Abnormal stress test. 2. Wide complex tachycardia, likely ventricular tachycardia. 3. Coronary artery disease, status post stent placement. SECONDARY DIAGNOSES: 1. Hyperlipidemia. 2. Hypertension. 3. Possible obstructive sleep apnea. DISCHARGE MEDICATION REGIMEN: 1. Irbesartan 150 mg by mouth 2 times daily. 2. Ticagrelor 90 mg by mouth 2 times daily. 3. Nitroglycerin 0.4 mg sublingual every 5 minutes as needed for chest pain. 4. Metoprolol succinate 50 mg by mouth 2 times daily. 5. Atorvastatin 80 mg by mouth nightly. 6. Aspirin 81 mg by mouth daily. STUDIES DONE DURING HOSPITALIZATION: Chest x-ray, impression: No evidence for acute disease. Transthoracic echocardiogram: Mild concentric LVH, normal left ventricular systolic function with an EF of 60%, abnormal left ventricular diastolic filling is observed, [id number] mitral regurgitation, trace-to- mild tricuspid regurgitation. Compared to 12/23/13, the LV hypertrophy is noted. Cardiac catheterization: Presence of significant circumflex disease with possibly significant proximal right coronary artery disease. The patient received drug- eluting stent to the circumflex artery. Catheterization was interrupted due to a STEMI presenting in another patient. HISTORY OF PRESENT ILLNESS AND HOSPITAL SUMMARY: Please see the full history and physical by Dave Martinez NP for full details. Briefly, Mr. Franklin is a 71- year- old male with a past medical history as above, who presented to the hospital electively to undergo nuclear cardiac stress test and during the test, he had a 20- beat episode of V-tach. He felt very short of breath without any chest pain. He was sent to the emergency room. Cardiology followed him while in the hospital. He did not bump his troponins. He underwent echocardiogram as above and cardiac catheterization with stent placed to the circumflex artery and as noted, the patient was found to have significant proximal RCA disease that was not intervened upon. This will be addressed as an outpatient between Dr. Benavides and Dr. Woods. The patient had no chest pain or concerning symptoms while hospitalized and he was discharged home on the above medication regimen. He will follow up with Cardiology and his PCP as an outpatient. TIME SPENT: Total time spent on this discharge 45 minutes. This is just a summary of the hospitalization. Please see the full medical record for further details. CC: Dr. Ervin* [id number]/[facility] #: [id number] ELE
== END 2016-03-19 12:55 | disposition home or self-care (01) | DRG 247 ==
LOC: ED 10:53 → MEDTELE 12:01 → ICU 15:22 → MEDTELE 03-18 10:13
PROVIDERS: ADMIT Internal Medicine; ATTEND Internal Medicine
PROC: 027034Z Dilation of Coronary Artery, One Artery with Drug-eluting Intraluminal Device, Percutaneous Approach (ICD-10-PCS; 2016-03-17)
PROC: B215YZZ Fluoroscopy of Left Heart using Other Contrast (ICD-10-PCS; 2016-03-17)
PROC: 4A023N7 Measurement of Cardiac Sampling and Pressure, Left Heart, Percutaneous Approach (ICD-10-PCS; 2016-03-17)
PROC: B211YZZ Fluoroscopy of Multiple Coronary Arteries using Other Contrast (ICD-10-PCS; principal; 2016-03-17 07:00)
DX: I25.10 Atherosclerotic heart disease of native coronary artery without angina pectoris (principal); I47.2 Ventricular tachycardia; I08.1 Rheumatic disorders of both mitral and tricuspid valves; I10 Essential (primary) hypertension; E78.00 Pure hypercholesterolemia, unspecified; E78.5 Hyperlipidemia, unspecified; R07.89 Other chest pain; R94.39 Abnormal result of other cardiovascular function study; G47.33 Obstructive sleep apnea (adult) (pediatric); Z95.5 Presence of coronary angioplasty implant and graft; Z88.5 Allergy status to narcotic agent; Z88.8 Allergy status to other drugs, medicaments and biological substances; Z85.820 Personal history of malignant melanoma of skin; Z91.041 Radiographic dye allergy status; Z80.3 Family history of malignant neoplasm of breast; Z80.42 Family history of malignant neoplasm of prostate; Z72.89 Other problems related to lifestyle; Z79.82 Long term (current) use of aspirin
CPT/HCPCS: 36415; 71010; 71020; 80053; 80061; 81003; 82550; 82553; 83036; 83690; 83735; 83880; 84443; 84484; 85025; 85610; 85730; 86140; 87641; 93005; 93306; 93458; A9270-GY; C1725; C1769; C1876; C1887; C9600-LC; J0153; J0583; J1200; J1644; J2250; J2930; J3010

== ENCOUNTER 2016-04-12 23:29 | Emergency (ER) | payer MEDICARE ==
--- NOTE | 2016-04-13 00:13 | ED ---
Upper Extremity Pain - HPI Summary HPI Summary: Patient presents for evaluation of dorsal side wrist lump at the site of arterial puncture during cardiac cath this past week. Denies any sensory or strength deficits. Otherwise feels well, but came for evaluation since it has been there all day. Called his nurse wound care 30 minutes prior to arrival. - History of Current Complaint Chief Complaint: EDExtremityUpper Stated Complaint: RT WRIST PAIN/PORT Time Seen by Provider: 04/12/16 23:38 Hx Obtained From: Patient Mechanism Of Injury: Penetrating Trauma Onset/Duration: Started Days Ago Timing: Constant Severity Initially: Mild Severity Currently: Mild - Allergies/Home Medications Allergies/Adverse Reactions: Allergies Allergy/AdvReac Type Severity Reaction Status Date / Time Reproterol Allergy Unknown Unknown Verified 03/17/16 11:03 Reaction Details Iohexol [From Omnipaque] Allergy Unknown Verified 04/09/16 13:06 Reaction Details Morphine Allergy Tachycardia Verified 03/17/16 11:03 Ramipril [From Altace] Allergy Unknown Verified 04/09/16 13:07 Reaction Details PMH/Surg Hx/FS Hx/Imm Hx Endocrine/Hematology History: Denies: Hx Diabetes, Hx Thyroid Disease Cardiovascular History: Reports: Hx Coronary Artery Disease - coronary stent x2 in 1998, Hx Hypercholesterolemia, Hx Hypertension Denies: Hx Peripheral Vascular Disease Respiratory History: Denies: Hx Asthma, Hx Chronic Obstructive Pulmonary Disease (COPD) Musculoskeletal History: Denies: Hx Arthritis, Hx Rheumatoid Arthritis, Hx Osteoporosis Sensory History: Denies: Hx Cataracts, Hx Contacts or Glasses, Hx Glaucoma Opthamlomology History: Denies: Hx Cataracts, Hx Contacts or Glasses, Hx Glaucoma Neurological History: Denies: Hx Headaches, Hx Seizures, Hx Transient Ischemic Attacks (TIA) Psychiatric History: Denies: Hx Anxiety, Hx Depression - Surgical History Surgery Procedure, Year, and Place: STENTS 1998 Hx Anesthesia Reactions: No Infectious Disease History: Denies: Traveled Outside the [place] in Last 30 Days - Family History Known Family History: Negative: Cardiac Disease, Hypertension, Diabetes Family History: No FHx of HLD, arhtritist, RA, Osteoporosis; FHx of CA - Social History Alcohol Use: None Hx Substance Use: No Substance Use Type: Reports: None Hx Tobacco Use: No Smoking Status (MU): Never Smoked Tobacco Review of Systems Negative: Arthralgia, Myalgia Negative: Numbness, Syncope All Other Systems Reviewed And Are Negative: Yes Physical Exam Triage Information Reviewed: Yes Vital Signs Reviewed: Yes Appearance: Positive: Well-Appearing, No Pain Distress, Well-Nourished Skin: Positive: Warm, Skin Color Reflects Adequate Perfusion, Dry, Other - mobile pea sized lump on the distal radial side wrist. No erythema or fluctuance. Respiratory/Lung Sounds: Positive: Clear to Auscultation, Breath Sounds Present Cardiovascular: Positive: Normal, RRR, Pulses are Symmetrical in both Upper and Lower Extremities Musculoskeletal: Positive: Normal, Strength/ROM Intact Neurological: Positive: Normal, Sensory/Motor Intact, Alert, Oriented to Person Place, Time, CN Intact II-III, Reflexes Intact, Normal Gait Course/Dx - Diagnoses Differential Diagnosis/HQI/PQRI: Positive: Contusion, Hematoma, Other - Primary concern for hematoma. Discussed case with supervisor display fabrication rehabilitation consultant and they agreed to DC with FU. Provider Diagnoses: Hematoma Discharge - Discharge Plan Condition: Stable Disposition: HOME Patient Education Materials: Hematoma (ED)
--- NOTE | 2016-04-13 11:24 | RAD ---
INDICATION: Right lower side wrist pain status post radial artery catheterization. COMPARISON: None TECHNIQUE: Real time ultrasound images of the right radial artery and overlying soft tissues were acquired with gabriel scale and Doppler color flow imaging. FINDINGS: The right radial artery is adequately patent. No focal aneurysm or pseudoaneurysm is depicted. There is a small avascular hematoma in the subcutaneous tissue overlying the site of radial artery catheterization measuring 9 x 5 x 3 mm. IMPRESSION: Small subcutaneous hematoma overlying the otherwise normal-appearing right radial artery.
== END 2016-04-13 00:31 | disposition home or self-care (01) ==
LOC: ED 23:29
DX: R22.9 Localized swelling, mass and lump, unspecified (principal); S60.211A Contusion of right wrist, initial encounter; X58.XXXA Exposure to other specified factors, initial encounter; Y93.9 Activity, unspecified; Y92.9 Unspecified place or not applicable; Y99.9 Unspecified external cause status; Z98.890 Other specified postprocedural states
CPT/HCPCS: 99282

== ENCOUNTER 2018-12-25 13:08 | Emergency (ER) | payer MEDICARE ==
--- OUTSIDE RECORDS SUMMARY | 2018-12-25 13:15 | XMS REPORT | Continuity of Care Document ---
:1945 External Reference #:[id number] Author Name Anita Farias PA-C Address [address] [place] [address] Care Team Providers Name Role Phone Ceasar Corbin M.D. - Care Team Information Senior Research Manager [phone] Cardiovascular Disease Robbin Ervin M.D. - Family Care Team Information Senior Research Manager [phone] Medicine Problems Active Problems Provider Date Essential hypertension Cesaar Correa MD Onset: 02/22/2009 Social History Type Date Description Comments Sex Unknown Tobacco Use Start: Unknown Never Smoked Cigarettes Tobacco Use Start: Unknown Never Smoked Cigars Tobacco Use Start: Unknown Never Smoked A Pipe Smoking Status Reviewed: 11/23/18 Never Smoked A Pipe Smokeless Tobacco Never Used Smokeless Tobacco ETOH Use Denies alcohol use Tobacco Use Start: Unknown Patient has never smoked Allergies, Adverse Reactions, Alerts Active Allergies Reaction Severity Comments Date Reopro 02/22/2009 Morphine 02/22/2009 Contrast Dye 02/22/2009 Iohexol 08/03/2017 Medications Active Medications SIG Qnty Indications Ordering Provider Date Baby Aspirin 1 tab daily Unknown Irbesartan 1 tab daily Robbin Ervin M.D. 150mg Tablets Atorvastatin Calcium 1 tab daily Robbin Ervin M.D. 80mg Tablets Amlodipine Besylate 1 tab daily Robbin Ervin M.D. 5mg Tablets Metoprolol Succinate ER 1 tab daily Robbin Ervin M.D. 50mg Tablets ER 24HR Immunizations CPT Code Status Date Vaccine Lot # [id number] Given 12/13/2013 Influenza Virus Vaccine, 3 Years Of Age And Above, Intramuscular Vital Signs Date Vital Result Comment 11/23/2018 8:50am Weight 163.00 lb Weight 73.937 kg Height 66 inches 5'6" Height in cm's 167.6 cm BMI (Body Mass Index) 26.3 kg/m2 09/15/2018 8:56am Weight 163.00 lb Weight 73.937 kg Height 66 inches 5'6" Height in cm's 167.6 cm BMI (Body Mass Index) 26.3 kg/m2 Results Description No Information Available Procedures Date Code Description Status 09/15/2018 91414 Tympanometry Completed 09/15/2018 52055 Comprehensive Audiogram Completed 09/15/2018 24710 Pure Tone - Air Conduction Only Completed 09/15/2018 98349 Removal Wax Impaction Completed Medical Devices Description No Information Available Encounters Type Date Location Provider Dx Diagnosis Office Visit 09/15/2018 [place] Anita Farias, H61.23 Impacted cerumen , 8:45a 03/02/07 [place] bilateral H90.A22 Snsrnrl hear loss, uni, l ear, with rstrcd hear cntra side Assessments Date Code Description Provider 11/23/2018 H61.23 Impacted cerumen, bilateral Anita Farias PA-C 09/15/2018 H61.23 Impacted cerumen, bilateral Anita Farias PA-C 09/15/2018 H90.A22 Sensorineural hearing loss, Ricky Tucker MA, CCC-A unilateral, left ear, with restricted hearing on the contralateral side 09/15/2018 H90.A22 Sensorineural hearing loss, Anita Farias PA-C unilateral, left ear, with restr Plan of Treatment No Information Available Functional Status Description No Information Available Mental Status Description No Information Available Referrals Description No Information Available
--- OUTSIDE RECORDS SUMMARY | 2018-12-25 13:15 | XMS REPORT | Continuity of Care Document ---
:1945 External Reference #:[id number] Author Name Robbin Ervin M.D. Address [address] [facility] [address] [place] [address] Care Team Providers Name Role Phone [facility] - [employer], Care Team Information Java Sdet Cardiovascular Problems Active Problems Provider Date Benign essential hypertension Erma Soliz MD Onset: 06/19/2005 Coronary arteriosclerosis Erma Soliz MD Onset: 06/19/2005 Essential hypertension Erma Soliz MD Onset: 07/10/2011 Onychomycosis Erma Soliz MD Onset: 07/10/2011 History of malignant melanoma of the skin Erma Soliz MD Onset: 07/10/2011 Ear problem Erma Soliz MD Onset: 07/19/2013 History of malignant neoplasm of skin Erma Soliz MD Onset: 07/19/2013 Social History Type Date Description Comments Sex Unknown Tobacco Use Reviewed: 08/03/17 Never Smoked Cigarettes Smoking Status Reviewed: 08/03/17 Never Smoked Cigarettes ETOH Use Never used alcohol Recreational Drug Use Never Used Drugs Tobacco Use Start: Unknown Non Smoker / No Tobacco Allergies, Adverse Reactions, Alerts Active Allergies Reaction Severity Comments Date IV Contrast 06/24/2005 Morphine heart rate and bp dropped very low/per 02/21/2009 pt statement Medications Active Medications SIG Qnty Indications Ordering Provider Date Amlodipine Besylate take 1 tablet 90tabs I10 Robbin Ervin 06/12/2016 daily for high M.D. 5mg Tablets blood pressure Metoprolol Succinate 1 by mouth 2x/day I10 [facility] 04/29/2016 ER for high blood of Application Processor 50mg Tablets ER pressure 24HR Atorvastatin Calcium take one tablet by 90tabs E78.00 [place] MD mouth once daily 80mg Tablets for high cholesterol Ecotrin 1 PO qd I25.10 Erma Soliz MD 06/19/2005 81mg Tablets Medications Administered in Office Medication SIG Qnty Indications Ordering Provider Date injection, kenalog, 10 mg Cameron Humphreys M.D. 04/20/2006 Injection Immunizations CPT Code Status Date Vaccine Lot # [id number] Given 12/02/2018 Influenza Vaccine, Inactivated, Subunit, Adjuvanted, For Intrmusc 11832 Given 12/24/2017 Influenza Vaccine Split Virus Preservative Free Im Use 01661 Given 09/15/2017 Shingrix Zoster (Shingles) Vaccine (HZV) Recomb,Subnit,Adjuvanted 08523 Given 05/27/2017 Shingrix Zoster (Shingles) Vaccine (HZV) Recomb,Subnit,Adjuvanted 53399 Given 12/11/2014 Prevnar 13 [id number] 70839 Given 12/11/2014 Influenza Vaccine Split Virus Preservative Free Im [id number] Use 56606 Given 07/20/2014 Adacel or Boostrix, TDaP [id number] 04416 Given 01/03/2014 Flu, Split Virus 3Yrs [id number] 80434 Given 12/22/2011 Flu, Split Virus 3Yrs 70264 Given 11/08/2009 Pneumococcal Immunization [id number] 34923 Given 11/08/2009 Flu, Split Virus 3Yrs [id number] 27758 Given 02/07/2009 Flu, Split Virus 3Yrs [id number] 74346 Given 01/06/2008 Td Immunization 27344 Given 01/06/2008 Flu, Split Virus 3Yrs 11373 Given 04/19/2007 Zostavax [id number] 31867 Given 03/02/2004 Flu, Split Virus 3Yrs Vital Signs Date Vital Result Comment 12/06/2018 4:18pm BP Systolic 122 mmHg BP Diastolic 80 mmHg Height 64 inches 5'4" Weight 162.00 lb BMI (Body Mass Index) 27.8 kg/m2 10/27/2017 3:49pm BP Systolic 122 mmHg BP Diastolic 73 mmHg Weight 169.00 lb Results Test Date Facility Test Result H/L Range Note Comp Metabolic Panel 11/08/2018 [facility] Sodium 141 mmol/L Normal 135-145 [phone] Potassium 3.7 mmol/L Normal 3.5-5.0 Chloride 105 mmol/L Normal 101-111 Co2 Carbon Dioxide 31 mmol/L Normal 22-32 Anion Gap 5 mmol/L Normal 2-11 Glucose 98 mg/dL Normal 70-100 Blood Urea Nitrogen 15 mg/dL Normal 6-24 Creatinine 0.97 mg/dL Normal 0.67-1.17 BUN/Creatinine Ratio 15.5 Normal 8-20 Calcium 9.0 mg/dL Normal 8.6-10.3 Total Protein 5.7 g/dL Low 6.4-8.9 Albumin 4.0 g/dL Normal 3.2-5.2 Globulin 1.7 g/dL Low 2-4 Albumin/Globulin Ratio 2.4 Normal 1-3 Total Bilirubin 1.40 mg/dL High 0.2-1.0 Alkaline Phosphatase 69 U/L Normal 34-104 Alt 18 U/L Normal 7-52 Ast 21 U/L Normal 13-39 Egfr Non- 75.5 >60 Egfr 91.3 >60 1 Lipid Profile (Trig/Chol/HDL) 11/08/2018 [facility] Triglycerides 42 mg /dL 2 [phone] Cholesterol 110 mg/dL 3 HDL Cholesterol 48.8 mg/dL 4 LDL Cholesterol 53 mg/dL 5 Laboratory test 11/08/2018 [facility] Creatine 101 U/L Normal 10-223 6 finding [phone] Kinase(CK) Laboratory test 06/23/2018 [facility] PSA Screening 2.767 0-4.0 7 finding [phone] ng/mL 1 Because ethnic data is not always readily available, this report includes an eGFR for both -Americans and non- Americans. The National Kidney Disease Education Program (NKDEP) does not endorse the use of the MDRD equation for patients that are not between the ages of 18 and 70, are , have extremes of body size, muscle mass, or nutritional status, or are non- or non-. According to the National Kidney Foundation, irrespective of diagnosis, the stage of the disease is based on the level of kidney function: Stage Description GFR(mL/min/1.73 m(2)) 1 Kidney damage with normal or decreased GFR 90 2 Kidney damage with mild decrease in GFR 60-89 3 Moderate decrease in GFR 30-59 4 Severe decrease in GFR 15-29 5 Kidney failure <15 (or dialysis) 2 Desirable: <150 Borderline High: 150-199 High: 200-499 Very High: >500 3 Desirable: <200 Borderline High: 200-239 High: >239 4 Low: <40 Desirable: 40-60 High: >60 5 Desirable: <100 Near Optimal: 100-129 Borderline High: 130-159 High: 160-189 Very High: >189 6 Copy Result to: ROBBIN ERVIN ([id number]) 7 Serum levels of PSA measured using the Roselyn Kiko DXI Hybritech immunoassay should not be interpreted as absolute evidence of the presence or absence of disease. The PSA value should be used in conjunction with other pertinent clinical diagnostic procedures. The values obtained with different assay methods or kits cannot be used interchangeably. Procedures Date Code Description Status 11/30/2009 16915079 Colonoscopy Completed Medical Devices Description No Information Available Encounters Type Date Location Provider Dx Diagnosis Office Visit 12/06/2018 Main Office Robbin Ervin R21 Rash and other 4:00p M.D. nonspecific skin eruption Z68.27 Body mass index (BMI) 27.0-27.9, adult Assessments Date Code Description Provider 12/06/2018 R21 Rash and other nonspecific skin eruption Robbin Ervin M.D. 12/06/2018 Z68.27 Body mass index (BMI) 27.0-27.9, adult Robbin Ervin M.D. Plan of Treatment Future Appointment(s):04/01/2019 3:30 pm - Robbin Ervin M.D. at Main [facility]/06/2018 - Robbin Ervin M.D.R21 Rash and other nonspecific skin eruptionComments:Scabies is very unlikely. DDx incl flea bites (most likely), bedbugs. Advised he have his cat checked and advised re using an OTC flea bomb type product, but to clear clutter and clean well in advance.RTO prn.I did offer Tx for scabies as a just in case and that if he or were going ot be treated it would only work if they were both treated simultaneously. He declined Tx.Z68.27 Body mass index (BMI) 27.0-27.9, adult Functional Status Description No Information Available Mental Status Description No Information Available Referrals Description No Information Available
[2018-12-25 13:32] VITALS: BP 150/80
--- NOTE | 2018-12-25 13:57 | UC ---
Laceration HPI - HPI Summary HPI Summary: Patient is a 73-year-old male presenting with head laceration happened last night around 10:30 PM when he tried to stomp on a spider but fell backwards onto his buttocks and then hit his head on the wooden tv stand. Notes it bled immediately and he rinsed it out over the sink. States it stopped bleeding after about an hour but he still has some "oozing today." Denies LOC, nausea, vomiting, headache, dizziness, vision changes. He takes one aspirin daily. Patient states he is up-to-date on his tetanus. - History Of Current Complaint Chief Complaint: Nadine Stated Complaint: HEAD LAC Hx Obtained From: Patient Pain Intensity: 0 - Allergies/Home Medications Allergies/Adverse Reactions: Allergies Allergy/AdvReac Type Severity Reaction Status Date / Time iohexol Allergy Unknown Verified 12/25/18 13:25 Reaction Details morphine Allergy Unknown Verified 12/25/18 13:25 Reaction Details ramipril Allergy Unknown Verified 12/25/18 13:25 Reaction Details reproterol Allergy Unknown Verified 12/25/18 13:25 Reaction Details Home Medications: Home Medications Amlodipine Besylate [Norvasc] 5 mg PO DAILY 12/25/18 [History Confirmed 12/25/18 ] PMH/Surg Hx/FS Hx/Imm Hx Endocrine History: Dyslipidemia Cardiovascular History: Hypertension - Surgical History Surgical History: Yes Surgery Procedure, Year, and Place: STENTS 1998, 2016 - Family History Known Family History: Negative: Cardiac Disease, Hypertension, Diabetes Family History: No FHx of HLD, arhtritist, RA, Osteoporosis; FHx of CA - Social History Alcohol Use: None Substance Use Type: None Smoking Status (MU): Never Smoked Tobacco Review of Systems All Other Systems Reviewed And Are Negative: No Constitutional: Positive: Negative. Negative: Fever, Chills Skin: Positive: Other - Head laceration Respiratory: Positive: Negative. Negative: Shortness Of Breath, Cough Cardiovascular: Positive: Negative. Negative: Palpitations, Chest Pain Gastrointestinal: Positive: Negative. Negative: Vomiting, Nausea Motor: Positive: Negative Neurovascular: Positive: Negative Musculoskeletal: Negative: Edema Neurological: Positive: Negative. Negative: Headache, Weakness, Paresthesia, Numbness Physical Exam Triage Information Reviewed: Yes Appearance: Well-Appearing, No Pain Distress, Well-Nourished Vital Signs: Initial Vital Signs Temp 97.9 F 12/25/18 13:29 Pulse 51 12/25/18 13:29 Resp 18 12/25/18 13:29 BP 150/80 12/25/18 13:29 Pulse Ox 100 12/25/18 13:29 Vital Signs Reviewed: Yes Eyes: Positive: Conjunctiva Clear ENT: Positive: Hearing grossly normal Neck: Positive: Supple Respiratory Exam: Normal Respiratory: Positive: Lungs clear, Normal breath sounds, No respiratory distress Cardiovascular Exam: Normal Cardiovascular: Positive: RRR Neurological: Positive: Alert Psychological: Positive: Age Appropriate Behavior Skin: Positive: Other - 4cm superficial scalp laceration deeper on left side. minimal bleeding noted. no purulent drainage. Laceration Repair - Laceration Repair scalp Description: Linear Laceration Size After Repair: Length (cm) - 4cm Type Injection: Local Anesthesia Used: 1.0% Lido Cleansing Completed Via Routine Prep: Yes Closure Material: [place] - 2 Closure Method: Single Layer Suture Of: Skin Laceration Course/Dx - Course/Dx Course Of Treatment: Scalp laceration was irrigated with NS and repaired with 2 miracle. Patient tolerated procedure well. Educated on signs and symptoms of infection and to return for go to ED if any occur. Instructed to return or go to PCP in 7-10 days for suture removal. Patient voiced understanding and agreed with the treatment plan. - Diagnosis Provider Diagnosis: Laceration of scalp Discharge ED - Sign-Out/Discharge Documenting (check all that apply): Patient Departure All imaging exams completed and their final reports reviewed: No Studies - Discharge Plan Condition: Stable Disposition: HOME Patient Education Materials: Laceration (ED) Referrals: Robbin Ervin MD [Primary Care Provider] - If Needed Additional Instructions: As discussed, keep your miracle clean and dry today. You may shower and wash gently with soap and water daily starting tomorrow. Your miracle will not absorb and you should return or follow up with your primary care physician in 7-10 days to have them removed. You may take over the counter pain medications as directed for pain relief. Return or go to the emergency department if you experience any redness, swelling , excessive bleeding, pus, fever, or nausea and vomiting. - Billing Disposition and Condition Condition: STABLE Disposition: Home - Attestation Statements Provider Attestation: I was available for consult. This patient was seen by the COLIN. The patient was not presented to, seen by, or examined by me. -Hari
[2018-12-25] MEDS ORDERED: Lidocaine 1% MPF ** 5 ML VIAL INJ ONE (14:12)
== END 2018-12-25 14:55 | disposition home or self-care (01) ==
LOC: UCEAST 13:08
DX: S01.01XA Laceration without foreign body of scalp, initial encounter (principal); W19.XXXA Unspecified fall, initial encounter; Y92.9 Unspecified place or not applicable; E78.5 Hyperlipidemia, unspecified; I10 Essential (primary) hypertension; Z88.5 Allergy status to narcotic agent; Z88.8 Allergy status to other drugs, medicaments and biological substances
CPT/HCPCS: 12002; 99211; G0463